=== PATIENT | female | born 1990 ===

== ENCOUNTER 2021-02-08 02:57 | Emergency (ER) | payer SELFPAY ==
[2021-02-08] MEDS ORDERED: MORPHINE 4 MG/ML SYR ONE (03:37)
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
[2021-02-08 04:51] VITALS: BP 124/74; TEMP 98.6
[2021-02-08 04:56] VITALS: O2SAT 99
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
== END 2021-02-08 04:35 | disposition home or self-care (01) ==
LOC: ER 02:57
DX: S63.501A Unspecified sprain of right wrist, initial encounter (principal); S40.021A Contusion of right upper arm, initial encounter; S20.229A Contusion of unspecified back wall of thorax, initial encounter; Y04.8XXA Assault by other bodily force, initial encounter; Y93.89 Activity, other specified; Y92.009 Unspecified place in unspecified non-institutional (private) residence as the place of occurrence of the external cause
CPT/HCPCS: 72128; 96372; 99284